=== PATIENT | male | born 1960 | race Caucasian/White ===

== ENCOUNTER 2016-11-23 08:50 | Inpatient (IN) | payer BC ==
[~2016-11-23 08:50] MED LIST: AZASAN75 M1 PO; CALCITRIOL0.25 MC1 PO; LIPITOR20 M1 PO; LOW DOSE ASPIRI81 M3 PO; OMEPRAZOLE40 M2 PO; PREDNISONE5 M1 PO; VITAMIN D3400 UNI5 PO
[2016-11-23 10:11] LABS: BASO % 0.4 % (0-2); EOS % 2.2 % (0-7); EOSINOPHIL ABSOLUTE COUNT 0.2 tho/cmm (0.0-0.7); HGB-HEMOGLOBIN 10.5 gm/dl (13.5-17.0); IMMATURE GRANULOCYTES ABSOLUTE 0.12 tho/cmm (0-0.03); IMMATURE GRANULOCYTES PERCENT 1.8 % (0-0.3); LYMPH % 23.5 % (20-45); LYMPH ABSOLUTE COUNT 1.6 tho/cmm (0.8-4.5); MCH (MEAN CORPUSCULAR HGB) 27.7 pg (28.0-32.0); MCHC MEAN CORPUSCULAR HGB CONC 31.8 % (32.0-36.0); MCV (MEAN CELL VOLUME) 87.1 fl (82.0-96.0); MEAN PLATELET VOLUME 9.5 cmc (9.4-12.4); MONO % 12.3 % (0-12); MONOCYTE ABSOLUTE COUNT 0.8 tho/cmm (0.0-1.2); NEUTROPHIL ABSOLUTE COUNT 4.1 tho/cmm (1.6-8.0); NEUTROPHIL-AUTOMATED 4.1 tho/cmm (1.6-8.0); NEUTROPHILS % 59.8 % (40-80); PLATELET COUNT 198 tho/cmm (150-450); RED BLOOD COUNT 3.79 mil/cmm (4.40-5.70); RED CELL DISTRIBUTION WIDTH 19.3 % (12.4-16.4); WHITE BLOOD COUNT 6.8 tho/cmm (4.0-10.0)
[2016-11-24 05:58] LABS: BASO % 0.3 % (0-2); EOS % 0.5 % (0-7); HCT-HEMATOCRIT 28.8 % (36.0-53.5); HGB-HEMOGLOBIN 9.3 gm/dl (13.5-17.0); IMMATURE GRANULOCYTES ABSOLUTE 0.07 tho/cmm (0-0.03); IMMATURE GRANULOCYTES PERCENT 0.9 % (0-0.3); LYMPH % 16.2 % (20-45); LYMPH ABSOLUTE COUNT 1.2 tho/cmm (0.8-4.5); MCH (MEAN CORPUSCULAR HGB) 28.1 pg (28.0-32.0); MCHC MEAN CORPUSCULAR HGB CONC 32.3 % (32.0-36.0); MONO % 10.5 % (0-12); MONOCYTE ABSOLUTE COUNT 0.8 tho/cmm (0.0-1.2); NEUTROPHIL ABSOLUTE COUNT 5.5 tho/cmm (1.6-8.0); NEUTROPHIL-AUTOMATED 5.5 tho/cmm (1.6-8.0); NEUTROPHILS % 71.6 % (40-80); PLATELET COUNT 187 tho/cmm (150-450); RED BLOOD COUNT 3.31 mil/cmm (4.40-5.70); RED CELL DISTRIBUTION WIDTH 19.3 % (12.4-16.4); WHITE BLOOD COUNT 7.7 tho/cmm (4.0-10.0)
[2016-11-24 06:11] LABS: ALBUMIN 2.4 g/dl (3.5-5.0); ANION GAP 13 mmol/L (0-20); BLOOD UREA NITROGEN 31 mg/dl (6-24); CALCIUM 8.1 mg/dl (8.5-10.5); CARBON DIOXIDE-VENOUS 26 mmol/L (22-32); CHLORIDE 103 mmol/l (96-110); CREATININE 1.93 mg/dl (0.60-1.30); GLUCOSE 111 mg/dL (70-110); PHOSPHOROUS 4.7 mg/dl (2.5-4.9); POTASSIUM 5.1 mmol/L (3.7-5.1); SODIUM 137 mmol/L (135-145); eGFR VALUE FOR BLACK 44 mL/Min
--- NOTE | 2016-11-24 16:01 | NUR ---
VIRTUAL CARE NOTE: PT RESTING ON BED, STATES HAVING PAIN STILL, PAIN TX HISTORY REVIEWED WITH PT, PAIN INFORMATON AND MANAGEMENT REINFORCED. ENCOURAGE ACTIVIITES ABLE. PLAN OF ARE DISCUSSED WITH PT, DENIES NEEDS OR QUESTIONS AT THIS TIME.
--- NOTE | 2016-11-24 21:40 | NUR ---
VN/LEADER ROUNDING NOTE-VISITED WITH PATIENT AND SPOUSE - PATIENT STATES HE IS HAVING PAIN BUT IT IS DOING BETTER. HE JUST GOT SOME PAIN MEDICATION. WE TALKED ABOUT AMBULATING MORE HE HAS BEEN UP ONLY ONCE AND I EDUCATED ABOUT THE IMPORTANCE OF WALKING AND IT WILL HELP TO DISIPATE THE GAS IN STOMACH FROM THE SURGERY. SUGGESTED WHEN HE GETS UP TO THE BATHROON HE GOES AHEAD AND WALKS A LITTLE WAYS IN THE HALLS. HIS SAID SHE WILL HAVE HIM DO THIS PRIOR TO HER LEAVING [facility]. PATIENT STATES CARE HAD BEEN GREAT AND NO COMPLAINTS EVERYONE HAS DONE A WONDERFUL JOB. WE ALSO REVIEWED SOME FAITH DRAIN TEACHING. NO FURTHER QUESTIONS OR CONCERNS - CHART REVIEWED.
[2016-11-25] MEDS ORDERED: OXYCODONE HCL5 M1 PO (11:57)
[2016-11-25] MEDS ORDERED: AUGMENTIN XR 11 EACH PO (11:58)
[2016-11-25] MEDS ORDERED: PROBIOTIC1 EA10 (12:01)
[2016-11-25] MEDS ORDERED: PROBIOTIC (12:03)
[2016-11-25] MEDS ORDERED: NORCO 5-325 TA1 EACH PO (12:05)
[2016-11-25] MEDS ORDERED: STOP HOME MEDICATION (12:07)
== END 2016-11-25 13:30 | DRG 419 ==
LOC: SHSC 08:50 → ORW 10:30 → PACU 12:10 → 5WD 13:18
PROVIDERS: ADMIT Specialist
PROC: 0FT44ZZ Resection of Gallbladder, Percutaneous Endoscopic Approach (ICD-10-PCS; principal; 2016-11-23)
PROC: 0DNK4ZZ Release Ascending Colon, Percutaneous Endoscopic Approach (ICD-10-PCS; 2016-11-23)
PROC: 0DN94ZZ Release Duodenum, Percutaneous Endoscopic Approach (ICD-10-PCS; 2016-11-23)
PROC: BF10YZZ Fluoroscopy of Bile Ducts using Other Contrast (ICD-10-PCS; 2016-11-23)
DX: K80.00 Calculus of gallbladder with acute cholecystitis without obstruction (principal); E11.22 Type 2 diabetes mellitus with diabetic chronic kidney disease; N18.3 Chronic kidney disease, stage 3 (moderate); Z68.34 Body mass index [BMI] 34.0-34.9, adult; Z79.82 Long term (current) use of aspirin; K66.0 Peritoneal adhesions (postprocedural) (postinfection); Z88.8 Allergy status to other drugs, medicaments and biological substances; R63.4 Abnormal weight loss; K59.00 Constipation, unspecified; E66.01 Morbid (severe) obesity due to excess calories; G47.33 Obstructive sleep apnea (adult) (pediatric); I12.9 Hypertensive chronic kidney disease with stage 1 through stage 4 chronic kidney disease, or unspecified chronic kidney disease; E78.5 Hyperlipidemia, unspecified
CPT/HCPCS: C1894; J0690; J1720; J2270; J2765; J7030; J7050; J7500; J7512; Q9966